=== PATIENT | male | born 1985 | race Caucasian/White ===

== ENCOUNTER 2023-03-06 18:15 | Emergency (ER) | payer MEDICAID ==
[~2023-03-06] VITALS: Ht 180.3 cm; Wt 78.9 kg
[2023-03-06] MEDS ORDERED: HYDROCODONE/APAP 10-325 MG TABLET PO ONE (18:45)
[2023-03-06] MEDS ORDERED: PENICILLIN G BENZATHINE 2.4 MMU/4 ML DISP.SYRIN IM ONE ×2 (18:45→18:57)
[2023-03-06] MEDS ORDERED: ONDANSETRON ODT 4 MG TAB.RAPDIS SL ONE (18:45)
[2023-03-06] MEDS ORDERED: HYDR-3980 PO (18:58)
[2023-03-06] MEDS ORDERED: HYDROCODONE/APAP 10-325 MG TABLET ONE (18:59)
[2023-03-06] MEDS ORDERED: ONDANSETRON ODT 4 MG TAB.RAPDIS ONE (19:01)
[2023-03-06 20:22] VITALS: BP 135/78; TEMP 98; O2SAT 98
== END 2023-03-06 20:23 | disposition home or self-care (01) ==
LOC: ER 18:34
DX: K04.7 Periapical abscess without sinus (principal); R22.0 Localized swelling, mass and lump, head; F17.210 Nicotine dependence, cigarettes, uncomplicated; Z71.6 Tobacco abuse counseling
CPT/HCPCS: 99283; 99406; 96372; J0561; A4663; Q0162